=== PATIENT | male | born 1985 | race Caucasian/White ===

== ENCOUNTER 2017-05-16 16:19 | Emergency (ER) | payer BC ==
[~2017-05-16] VITALS: Ht 177.8 cm; Wt 82.4 kg
[~2017-05-16 16:19] MED LIST changes: -ADAL40KI SQ; -ONDA4TAB10 SL; -OXYC-57 PO; -OXYC1TAB3 PO; -PNT500 PO; -TAMS0.4C38 PO
[2017-05-16 16:22] VITALS: TEMP 36.6; Ht 177.8 cm; Wt 82.4 kg
[2017-05-16] MEDS ORDERED: SODIUM CHLORIDE 0.9% 1000ML 1,000 ML IV STA (16:32)
[2017-05-16] MEDS ORDERED: MoRPHine SULFATE 10 MG/ML CARP/VIAL IV STA ×2 (16:32→18:26)
[2017-05-16] MEDS ORDERED: ONDANSETRON INJ 2 MG/ML 2 ML VIAL IV STA (16:32)
[2017-05-16] MEDS ORDERED: KETOROLAC TROMETHAMINE 30 MG/ML VIAL IV STA (16:32)
[2017-05-16] MEDS ORDERED: MoRPHine SULFATE 2 MG/ML CARP ONE ×2 (16:40→18:33)
[2017-05-16] MEDS ORDERED: MoRPHine SULFATE 4 MG/ML 1 ML CARP\\VIAL ONE ×2 (16:41→18:33)
[2017-05-16 16:45] LABS: BASO % 0.1 %; BASO ABS # 0.01 K/uL (0-0.2); COMPLETE YES; EOS % 1.6 %; HEMATOCRIT 45.6 % (42-52); IG% 0.1 %; LYMPH % 23.8 %; LYMPH ABS # 2.12 K/uL (1.2-3.4); MEAN CELL VOLUME 84.8 fL (80-100); MEAN CORPUSCULAR HEMOGLOBIN 28.8 pg (25-34); MEAN PLATELET VOLUME 8.6 fL (7.4-10.4); MONO % 5.8 %; NEUT % 68.6 %; PLATELET COUNT 286 K/uL (130-400); RED BLOOD COUNT 5.38 M/uL (4.7-6.1)
[2017-05-16] MEDS ORDERED: TAMSULOSIN HCL 0.4 MG CAP PO ONE (16:45)
[2017-05-16 17:04] LABS: BUN/CREATININE RATIO 14.6 (10-20); CALCIUM 9.1 mg/dl (8.5-10.1); CREATININE 1.2 mg/dl (0.60-1.40); POTASSIUM 3.7 mmol/L (3.5-5.1)
--- NOTE | 2017-05-16 17:59 | DIAGNOSTIC IMAGING REPORT ---
KUB CLINICAL HISTORY: left ureteral calculi COMPARISON STUDY: 09/16/2011 FINDINGS: No definite renal calcifications on the current study. Postoperative changes right upper quadrant unchanged. Linear grouping of poorly defined calcifications left lateral soft tissue pelvis. I cannot exclude the possibility of distal left ureteral calculi. Bony structures are unremarkable. IMPRESSION: Linear grouping of probably defined calcifications overlying the left ureter. No significant renal calcifications Electronically signed by: Igor Szymanski M.D. 05/16/2017 5:58 PM Dictated Date/Time: 05/16/2017 5:56 PM
[2017-05-16 19:18] LABS: URINE APPEARANCE CLOUDY (CLEAR); URINE BILIRUBIN NEG (NEG); URINE COLOR YELLOW; URINE NITRITE NEG (NEG); URINE PH 5.5 (4.5-7.5); URINE SPECIFIC GRAVITY 1.021 (1.000-1.030); UROBILINOGEN NEG (NEG); ZZUR CULT IF INDIC CLEAN CATCH NO
[2017-05-16 19:33] LABS: MANUAL MICROSCOPIC REQUIRED? NO; REVIEW REQ? NO
[2017-05-16] MEDS ORDERED: OXYC1TAB3 PO (20:23)
[2017-05-16] MEDS ORDERED: TAMS0.4C38 PO (20:23)
[2017-05-16] MEDS ORDERED: ONDA4TAB10 SL (20:23)
--- NOTE | 2017-05-16 20:24 | EMERGENCY ROOM VISIT NOTE ---
History First contact with patient: 16:24 Chief Complaint: KIDNEY STONE Stated Complaint: PAIN, KIDNEY STONE-PHYSICIAN REFERRED History of Present Illness The patient is a 31 year old male who presents to the Emergency Room with complaints of left flank pain with known left kidney stone. The patient states that he has had intermittent pain in the left flank area for one week. He states he has just been taking [id number] pain meds but today it became intolerable so he went to his PCP who gave him a shot of Toradol. He states that it took the edge off the pain. He was sent for a CT stone study. His PCP call him with results and told him to come to the emergency room. The patient denies any nausea or vomiting. The patient denies any urinary symptoms of frequency, urgency, dysuria or hematuria. The patient has a history of recurrent kidney stones. He has had lithotripsy in the past as well as being scoped and having stents placed one year ago. The patient states he refuses to have any ureteral stents placed again. The patient follows with Dr. Dunlap. Review of Systems 10 system review was performed and was negative unless stated otherwise history of present illness. Social History Smoking Status: Former Smoker Marital Status: Occupation Status: employed Current/Historical Medications No Active Prescriptions or Reported Meds Allergies Coded Allergies: Clavulanic Acid (Unverified Allergy, Mild, 2/5/10) Penicillins (Unverified Allergy, Mild, 2/5/10) Uncoded Allergies: BETALACTAMASEIN (Allergy, Mild, 2/5/10) Physical Exam Vital Signs Date Time Temp Pulse Resp B/P (MAP) Pulse Ox O2 Delivery O2 Flow Rate FiO2 05/16/17 19:41 64 18 127/72 98 Room Air 05/16/17 18:22 151/90 05/16/17 16:22 36.6 83 20 135/90 100 Room Air Physical Exam GENERAL: 31-year-old white male appears uncomfortable secondary to pain. MENTAL Status: Alert and oriented 3. MOUTH: Mucosa is moist NECK: Supple, no lymphadenopathy noted. No carotid bruits noted. LUNGS: Clear auscultation without wheezes rales or rhonchi. CARDIAC: Regular rate and rhythm without murmur. Pulses is full and equal throughout. BACK: No CVA tenderness noted. ABDOMEN: Positive bowel sounds all 4 quadrants. Soft, tenderness palpation in the left flank area otherwise nontender to palpation without organomegaly or masses. EXTREMITIES: No cyanosis or edema noted. Medical Decision & Procedures ER Provider Diagnostic Interpretation: KUB CLINICAL HISTORY: left ureteral calculi COMPARISON STUDY: 09/16/2011 FINDINGS: No definite renal calcifications on the current study. Postoperative changes right upper quadrant unchanged. Linear grouping of poorly defined calcifications left lateral soft tissue pelvis. I cannot exclude the possibility of distal left ureteral calculi. Bony structures are unremarkable. IMPRESSION: Linear grouping of probably defined calcifications overlying the left ureter. No significant renal calcifications Electronically signed by: Igor Szymanski M.D. 05/16/2017 5:58 PM Laboratory Results 05/16/17 16:30 Red Blood Count 5.38, Mean Corpuscular Volume 84.8, Mean Corpuscular Hemoglobin 28.8, Mean Corpuscular Hemoglobin Concent 34.0, Mean Platelet Volume 8.6, Neutrophils (%) (Auto) 68.6, Lymphocytes (%) (Auto) 23.8, Monocytes (%) (Auto) 5.8, Eosinophils (%) (Auto) 1.6, Basophils (%) (Auto) 0.1, Neutrophils # (Auto) 6.10, Lymphocytes # (Auto) 2.12, Monocytes # (Auto) 0.52, Eosinophils # (Auto) 0.14, Basophils # (Auto) 0.01 05/16/17 16:30 Test 05/16/17 16:30 05/16/17 17:30 White Blood Count 8.90 K/uL (4.8-10.8) Red Blood Count 5.38 M/uL (4.7-6.1) Hemoglobin 15.5 g/dL (14.0-18.0) Hematocrit 45.6 % (42-52) Mean Corpuscular Volume 84.8 fL (80-100) Mean Corpuscular Hemoglobin 28.8 pg (25-34) Mean Corpuscular Hemoglobin Concent 34.0 g/dl (32-36) Platelet Count 286 K/uL (130-400) Mean Platelet Volume 8.6 fL (7.4-10.4) Neutrophils (%) (Auto) 68.6 % Lymphocytes (%) (Auto) 23.8 % Monocytes (%) (Auto) 5.8 % Eosinophils (%) (Auto) 1.6 % Basophils (%) (Auto) 0.1 % Neutrophils # (Auto) 6.10 K/uL (1.4-6.5) Lymphocytes # (Auto) 2.12 K/uL (1.2-3.4) Monocytes # (Auto) 0.52 K/uL (0.11-0.59) Eosinophils # (Auto) 0.14 K/uL (0-0.5) Basophils # (Auto) 0.01 K/uL (0-0.2) RDW Standard Deviation 37.9 fL (36.4-46.3) RDW Coefficient of Variation 12.3 % (11.5-14.5) Immature Granulocyte % (Auto) 0.1 % Immature Granulocyte # (Auto) 0.01 K/uL (0.00-0.02) Anion Gap 5.0 mmol/L (3-11) Est Creatinine Clear Calc Drug Dose 91.3 ml/min Estimated GFR () 92.2 Estimated GFR (Non- 79.5 BUN/Creatinine Ratio 14.6 (10-20) Calcium Level 9.1 mg/dl (8.5-10.1) Urine Color YELLOW Urine Appearance CLOUDY (CLEAR) Urine pH 5.5 (4.5-7.5) Urine Specific [place] 1.021 (1.000-1.030) Urine Protein 1+ (NEG) Urine Glucose (UA) NEG (NEG) Urine Ketones NEG (NEG) Urine Occult Blood 3+ (NEG) Urine Nitrite NEG (NEG) Urine Bilirubin NEG (NEG) Urine Urobilinogen NEG (NEG) Urine Leukocyte Esterase SMALL (NEG) Urine WBC (Auto) 5-10 /hpf (0-5) Urine RBC (Auto) >30 /hpf (0-4) Urine Hyaline Casts (Auto) 1-5 /lpf (0-5) Urine Epithelial Cells (Auto) 5-10 /lpf (0-5) Urine Bacteria (Auto) NEG (NEG) Medications Administered Medications (Trade) Dose Ordered Sig/Wade Route Start Time Stop Time Status Last Admin Dose Admin Ketorolac Tromethamine (Toradol Inj) 30 mg NOW STAT IV 05/16/17 16:32 05/16/17 16:34 DC 05/16/17 16:58 30 MG Ondansetron HCl (Zofran Inj) 4 mg NOW STAT IV 05/16/17 16:32 6/27/17 16:35 DC 05/16/17 16:58 4 MG Tamsulosin HCl (Flomax Cap) 0.4 mg NOW ONCE PO 05/16/17 16:45 05/16/17 16:46 DC 05/16/17 16:51 0.4 MG Sodium Chloride 1,000 ml @ 999 mls/hr Q1H1M STAT IV 05/16/17 16:32 05/16/17 17:32 DC 05/16/17 16:59 999 MLS/HR Morphine Sulfate (MoRPHine SULFATE INJ) 2 mg STK-MED ONCE .ROUTE 05/16/17 16:40 05/16/17 16:41 DC 05/16/17 16:58 2 MG Morphine Sulfate (MoRPHine SULFATE INJ) 4 mg STK-MED ONCE .ROUTE 05/16/17 16:41 05/16/17 16:42 DC 05/16/17 16:53 4 MG Morphine Sulfate (MoRPHine SULFATE INJ) 2 mg STK-MED ONCE .ROUTE 05/16/17 18:33 05/16/17 18:34 DC 05/16/17 18:37 2 MG Morphine Sulfate (MoRPHine SULFATE INJ) 4 mg STK-MED ONCE .ROUTE 05/16/17 18:33 05/16/17 18:34 DC 05/16/17 18:38 4 MG ED Course The patient was evaluated. The patient's EMR and medication list were reviewed. The CT from earlier today revealed a 11 mm left ureteral calculi 1 cm proximal to the left UV junction with moderate hydronephrosis. IV access was obtained. The patient was given 1 L normal saline wide-open. The patient was given Toradol 30 mg IV, morphine 6 mg IV and Zofran 4 mg IV push. CBC and differential, renal profile, urinalysis was ordered. The patient was reevaluated and was feeling better. I consult to Dr. Foy to discuss the patient's case. He stated to get a KUB and if the stone is visible on the KUB he would be a candidate for lithotripsy on Monday. In that case of his penis sterile bulky can go home call the office tomorrow and get scheduled for lithotripsy on Monday. If the stone is not seen on the KUB he could be admitted and have a scope done tomorrow for removal. The patient was informed of the treatment options. A KUB was ordered and interpreted by the radiologist and myself as above with strandy calcific visible in the left pelvis consistent with possible ureteral calculi. The patient was informed of the findings. The patient was reevaluated and was in some pain and therefore was given additional 6 mode grams of morphine IV. Labs are reviewed and were unremarkable. Urinalysis was negative. The patient opted to go home on pain medication and call urology tomorrow to schedule lithotripsy for Monday. I stressed to the patient if he has any uncontrollable pain, uncontrolled nausea vomiting or fever return to ER immediately. The patient verbalized understanding and was discharged home with his driving.. Medical Decision The patient already presented with a known left ureteral calculi. The decision was made to control his pain and sent him home to schedule lithotripsy on Monday per patient's request over getting admitted and having a scope performed tomorrow for removal. Impression Primary Impression: Left ureteral calculus Departure Information Dispostion Home / Self-Care Condition GOOD Prescriptions Ondasetron Odt (ZOFRAN ODT) 4 Mg Tab 4 MG SL Q6H for Nausea, #10 TAB Prov: Tiffanie Szymanski PA-C 05/16/17 Oxycodone Immediate Rel Tab (ROXICODONE IR) 5 Mg Tab 1-2 TAB PO Q4H Y for Pain, #24 TAB Prov: Tiffanie Szymanski PA-C 05/16/17 Tamsulosin Hcl (FLOMAX) 0.4 Mg Cap 0.4 MG PO DAILY for 7 Days, #7 CAP Prov: Tiffanie Szymanski PA-C 05/16/17 Referrals Shonna Weston,D.OBreanne (PCP) Forms HOME CARE DOCUMENTATION FORM, IMPORTANT VISIT INFORMATION Patient Instructions Kidney Stones - [facility], [facility] Additional Instructions Drink a lot of water. Take Flomax daily as directed. Take OxyIR as directed for pain. Do not drive or taken OxyIR. Take Zofran as needed for associated nausea. Call urology tomorrow to set up an appointment and to schedule lithotripsy for Monday. If you experience any severe uncontrollable pain, uncontrolled nausea vomiting, fever return to ER immediately.
[2017-05-16] MEDS ORDERED: OXYCODONE IR HOME PACK PO ONE (20:30)
[2017-05-16 20:42] VITALS: BP 123/68; PULSE 67; O2SAT 97
[2017-05-18] MEDS ORDERED: PNT500 PO (13:20)
[2017-05-18] MEDS ORDERED: ADAL40KI SQ (13:20)
[2017-05-19] MEDS ORDERED: OXYC-57 PO (09:58)
== END 2017-05-16 20:48 | disposition home or self-care (01) ==
LOC: C.EDB 16:20 → C.EDC 20:48
DX: N20.1 Calculus of ureter (principal); R10.9 Unspecified abdominal pain; Z87.891 Personal history of nicotine dependence

== ENCOUNTER → 2017-05-16 | Outpatient (CLI) | payer BC ==
[~2017-05-16] MED LIST: ADAL40KI SQ; ASC400 PO; BUPRTAB51 PO; DSY50 PO; ONDA4TAB10 SL; OXYC-57 PO; OXYC1TAB3 PO; PNT500 PO; TAMS0.4C38 PO
--- NOTE | 2017-05-16 14:01 | DIAGNOSTIC IMAGING REPORT ---
CT SCAN OF THE ABDOMEN AND PELVIS WITHOUT IV CONTRAST CLINICAL HISTORY: Microscopic hematuria. Left side abdominal pain. Reported history of Crohn's disease. COMPARISON STUDY: KUB dated 09/08/2011. TECHNIQUE: CT scan of the abdomen and pelvis is performed from the lung bases to the proximal femora. Images are reviewed in the axial, sagittal, and coronal planes. IV contrast was not administered for this examination. Automated dose control exposure was utilized. CT DOSE: 625.07 mGy.cm FINDINGS: Lung bases: The heart is normal in size and without pericardial effusion. The lung bases are clear. Liver: The unenhanced liver is mildly enlarged measuring 19.5 cm in length. The liver demonstrates diffusely diminished attenuation consistent with mild hepatic steatosis. Fatty sparing is noted adjacent to gallbladder fossa. There is no intrahepatic biliary ductal dilatation. Gallbladder: Unremarkable. Spleen: The spleen is mildly enlarged measuring 15 cm in length. Pancreas: Unremarkable. Adrenal glands: Unremarkable. Kidneys: The unenhanced kidneys are normal in size. There is an 11 mm calculus or adjacent calculi seen within the distal left ureter approximately 1 cm above the vesicoureteral junction. This causes moderate left hydroureteronephrosis. There is associated perinephric and periureteric stranding. No additional left renal calculi are identified. There is a 4 mm nonobstructing calculus in the lower pole the right kidney. There is no right-sided hydronephrosis. There is no evidence of contour deforming renal mass lesion. Abdominal vasculature: The abdominal aorta is normal in course and caliber. Bowel: There are postoperative changes from ileocecal resection with ileocolic anastomosis. No bowel obstruction is identified. There is mild wall thickening suggested in the distal ileum proximal to anastomotic site. Mild surrounding inflammatory changes identified. This extends approximately 10 cm in length. No bowel obstruction is seen. The appendix is surgically absent. Peritoneum: There is no intraperitoneal free air or abdominal ascites. Lymphadenopathy: None. Pelvic viscera: The bladder, prostate, and seminal vesicles are normal as imaged. Surgical clips are seen along the spermatic cord bilaterally. Skeletal structures: No lytic or blastic lesions are seen. IMPRESSION: 1. There is an 11 mm in obstructing calculus or adjacent obstructing calculi in the distal left ureter approximately 1 cm above the vesicoureteral junction. This causes moderate left hydroureteronephrosis. 2. No additional left renal calculi are identified. A nonobstructing stone is seen in the right lower pole. 3. There are postoperative changes from ileocecectomy with ileocolic anastomosis. No bowel obstruction is identified. 4. There is mild wall thickening with surrounding inflammatory change seen involving the distal/terminal ileum above the ileocolic anastomosis. Active Crohn's disease is not excluded. Clinical correlation will be required. 5. Hepatomegaly and mild hepatic steatosis. 6. Splenomegaly. 7. Additional findings as above. Electronically signed by: Nehemias Thakkar M.D. 05/16/2017 2:00 PM Dictated Date/Time: 05/16/2017 1:52 PM
== END | disposition home or self-care (01) ==
LOC: C.CTS 13:35
PROVIDERS: ATTEND Nurse Practitioner Family
DX: R10.9 Unspecified abdominal pain (principal); R31.29 Other microscopic hematuria; Z87.442 Personal history of urinary calculi

== ENCOUNTER → 2017-05-17 | Outpatient (CLI) | payer BC ==
[~2017-05-17] MED LIST changes: +ADAL40KI SQ; -ASC400 PO; -BUPRTAB51 PO; -DSY50 PO; +ONDA4TAB10 SL; +OXYC-57 PO; +OXYC1TAB3 PO; +PNT500 PO; +TAMS0.4C38 PO
== END | disposition home or self-care (01) ==
LOC: C.LABMFLN 07:54
PROVIDERS: ATTEND Urology
DX: N20.0 Calculus of kidney (principal)

== ENCOUNTER → 2017-05-19 | Day surgery (SDC) | payer BC ==
[2017-05-18 13:15] VITALS: Ht 177.8 cm; Wt 79.5 kg
[~2017-05-19] VITALS: Ht 177.8 cm; Wt 79.5 kg
[~2017-05-19] MED LIST changes: +ATROPINE SULFATE 0.1 MG/ML 5ML SYR IV PRN; +CIPROFLOXACIN 400MG / D5W IV SCH; +DEXAMETHASONE SOD INJ 4 MG/ML VIAL ONE; +FENTANYL CITRATE INJ 50 MCG/1 ML 2 ML VIAL IV PRN; +FENTANYL CITRATE INJ 50 MCG/1 ML 2 ML VIAL ONE; +KETOROLAC TROMETHAMINE 30 MG/ML VIAL IV. PRN; +LABETALOL HCL IV 5 MG/ML 20ML IV PRN; +LACTATED RINGER'S 1000ML 1,000 ML IV SCH; +LIDOCAINE HCL 2% 2 ML VIAL (20MG/ML) ONE; +MEPERIDINE HCL 25 MG/ML CARP IV ONE; +MEPERIDINE HCL 25 MG/ML CARP ONE; +METOCLOPRAMIDE HCL INJ 5 MG/ML 2 ML VIAL ONE; +MIDAZOLAM HCL 1 MG/ML 2ML VIAL ONE; +ONDANSETRON INJ 2 MG/ML 2 ML VIAL IV PRN; +ONDANSETRON INJ 2 MG/ML 2 ML VIAL ONE; +PROPOFOL IV EMULSION 10 MG/ML 20 ML VIAL IV ONE; +ROCURONIUM BROMIDE 10 MG/ML 5 ML VIAL ONE; +SUCCINYLCHOLINE CHLORIDE 20 MG/ML 10 ML VIAL IV ONE
--- NOTE | 2017-05-19 08:02 | DIAGNOSTIC IMAGING REPORT ---
KUB HISTORY: Stones, pre OP COMPARISON: KUB 05/16/2017. Abdomen and pelvis CT 05/16/2017. FINDINGS: The bowel gas pattern is unremarkable. There are no dilated loops of small bowel to suggest an obstruction. Suture material in the right side of the abdomen. No change in the cluster of stones within the distal left ureter/ureterovesical junction. These measure a total length of 1.3 cm. No right ureteral calculi. No change in the 8 mm stone within the lower pole of the right kidney. No left renal calculi. No pneumoperitoneum or pneumatosis. IMPRESSION: 1. No change in the cluster of stones within the distal left ureter/ureterovesical junction. 2. Stable 8 mm stone within the lower pole of the right kidney. Electronically signed by: Colin Saavedra M.D. 05/19/2017 8:00 AM Dictated Date/Time: 05/19/2017 7:58 AM
--- NOTE | 2017-05-19 08:38 | DIAGNOSTIC IMAGING REPORT ---
JORDYN LEESB SINGLE AP CLINICAL HISTORY: Patient feels kidney stone is moving COMPARISON STUDY: KUB 05/16/2017. FINDINGS: Suture material right side the abdomen. No change in the 8 mm stone within the lower pole of the right kidney. No left ureteral calculi. The cluster of stones within the distal left ureter appear similar to the prior study. These measure 1 cm in length. IMPRESSION: 1. No significant change in the cluster of stones within the distal left ureter/ureterovesical junction. 2. Stable right-sided nephrolithiasis. Electronically signed by: Colin Saavedra M.D. 05/19/2017 8:37 AM Dictated Date/Time: 05/19/2017 8:32 AM
--- NOTE | 2017-05-19 08:49 | History & Physical Bridge - SC ---
H&P Re-Evaluation Bridge Note: I have examined the patient, reviewed the History & Physical and in the interval since the performance of the History & Physical I have noted the following changes of clinical significance: No changes noted
--- NOTE | 2017-05-19 08:50 | History & Physical Bridge - SC ---
H&P Re-Evaluation Bridge Note: I have examined the patient, reviewed the History & Physical and in the interval since the performance of the History & Physical I have noted the following changes of clinical significance: pt with recurrent l renal colic this am
--- NOTE | 2017-05-19 09:56 | [facility] Post Operative Brief Note ---
Immediate Operative Summary Operative Date May 19, 2017. Pre-Operative Diagnosis Left Ureteral Stone Post-Operative Diagnosis Same Procedure(s) Performed Left Extracorporeal Shock Wave Lithotripsy Surgeon Dr Foy Plumber Apprentice Surgeon(s) None Estimated Blood Loss 0ml Findings distal ureteral stones on left Specimens None Disposition Recovery Room / PACU
--- NOTE | 2017-05-19 09:59 | Discharge Instructions-SurgCtr ---
Discharge Instructions Date of Service May 19, 2017. Visit Reason for Visit: Stones Discharge Discharge Diagnosis / Problem: post op left ureteral eswl Discharge Goals Goal(s): Decrease discomfort, Increase independence, Improve disease control Activity Recommendations Activity Limitations: resume your previous activity Anesthesia . Post Anesthesia Instructions: If you have had General Anesthesia or IV Sedation: * Do not drive today. * Resume driving when surgeon permits. * Do not make important decisions or sign legal documents today. * Call surgeon for: 1. Temperature elevations greater than 101 degrees F. 2. Uncontrollable pain. 3. Excessive bleeding. 4. Persistent nausea and vomiting. 5. Medication intolerance (nausea, vomiting or rash). * For nausea and vomiting use only clear liquids such as: tea, soda, bouillon until nausea subsides, then gradually increase diet as tolerated. * If you have any concerns or questions, call your surgeon's office. If physician is unavailable and it is an emergency, call 911 or go to the nearest emergency room. . Diet Recommendations Home Diet: resume previous diet Procedures Procedures Performed: Left Extracorporeal Shock Wave Lithotripsy Pending Studies Studies pending at discharge: no Medical Emergencies . Who to Call and When: Medical Emergencies: If at any time you feel your situation is an emergency, please call 911 immediately. . Non-Emergent Contact Non-Emergency issues call your: Urologist . . "Provider Documentation" section prepared by Da Foy. .
[2017-05-19 11:05] VITALS: TEMP 36.6
--- NOTE | 2017-05-19 11:14 | Anesthesia Progress Nt - [facility] ---
Anesthesia Post Op Note Date & Time May 19, 2017 at 11:14 Vital Signs Pain Intensity: 0 Vital Signs Past 12 Hours Date Time Temp Pulse Resp B/P (MAP) Pulse Ox O2 Delivery O2 Flow Rate FiO2 05/19/17 11:05 36.6 71 16 135/75 (95) 99 Room Air 05/19/17 10:58 36.6 75 16 142/92 97 Room Air 05/19/17 10:19 74 13 100 05/19/17 10:19 74 13 05/19/17 10:16 129/78 05/19/17 10:14 79 16 05/19/17 10:14 79 16 100 05/19/17 10:13 84 16 100 05/19/17 10:13 83 16 05/19/17 10:11 138/82 05/19/17 10:09 138/75 05/19/17 10:08 36.2 95 16 138/75 97 Mask 05/19/17 10:08 95 05/19/17 10:08 95 98 05/19/17 08:53 74 05/19/17 08:53 69 99 05/19/17 08:52 84 05/19/17 08:52 83 98 05/19/17 08:51 172/110 05/19/17 08:47 81 98 05/19/17 08:47 79 05/19/17 08:46 143/91 05/19/17 08:42 56 05/19/17 08:42 56 100 05/19/17 08:41 151/101 05/19/17 08:40 59 05/19/17 08:40 58 100 05/19/17 08:36 157/100 05/19/17 08:35 61 100 05/19/17 08:35 65 05/19/17 08:31 163/104 05/19/17 08:30 63 99 05/19/17 08:30 62 05/19/17 08:04 36.5 73 16 176/122 (140) 99 Room Air Notes Mental Status: alert / awake / arousable, participated in evaluation Pt Amnestic to Procedure: Yes Nausea / Vomiting: adequately controlled Pain: adequately controlled Airway Patency, RR, SpO2: stable & adequate BP & HR: stable & adequate Hydration State: stable & adequate Anesthetic Complications: no major complications apparent
[2017-05-19 11:31] VITALS: BP 133/83; PULSE 70; O2SAT 98
--- NOTE | 2017-05-19 15:13 | [facility] Operative Report ---
Operative Report Operative Date May 19, 2017. Pre-Operative Diagnosis Left Ureteral Stone Procedure(s) Performed left ureteral eswl Surgeon Dr Foy Lead Systems Analyst Surgeon(s) None Estimated Blood Loss 0ml Findings left ureteral stones Specimens None Disposition Recovery Room / PACU Description of Procedure The patient presented to the surgery Center and extreme pain with severe left flank pain. Because of this we moved him out of several of the patient's for his left distal ureteral ESWL. The patient was taken to the operating room where he was placed in the supine position. The ureteral stone was visualized from above in 2 planes. The patient received 3000 shocks up to level and there did appear to be some fragmentation of the stones during the procedure. At the end of the procedure the patient was transferred to the recovery room in stable condition. I attest to the content of the Intraoperative Record and any orders documented therein. Any exceptions are noted below.
== END | disposition home or self-care (01) ==
LOC: X.SURG 07:15
PROVIDERS: ATTEND Urology
DX: N20.1 Calculus of ureter (principal)